=== PATIENT | female | born 1975 | race Caucasian/White ===

== ENCOUNTER → 2017-05-06 | Outpatient (CLI) | payer OTHER ==
[~2017-05-06] MED LIST: ATOM40 PO
[2017-05-06 14:15] LABS: AUTOMATED NEUTROPHIL # 6.5 TH/MM3 (1.8-7.7); BASOPHIL # 0.1 TH/MM3 (0-0.2); BASOPHIL % 0.8 % (0.0-2.0); EOSINOPHIL # 0.4 TH/MM3 (0-0.4); EOSINOPHIL % 4.2 % (0.0-4.0); HEMATOCRIT 40.1 % (35.0-46.0); HEMO FLAGS DIFF FINAL; LYMPH % 23.7 % (9.0-44.0); LYMPHOCYTE # 2.3 TH/MM3 (1.0-4.8); MEAN CELL VOLUME 85.2 FL (80.0-100.0); MEAN CORPUSCULAR HEMOGLOBIN 29.7 PG (27.0-34.0); MEAN CORPUSCULAR HGB CONC 34.9 % (32.0-36.0); MONO % 5.6 % (0.0-8.0); NEUT % 65.7 % (16.0-70.0); PLATELET COUNT 285 TH/MM3 (150-450); RED BLOOD COUNT 4.71 MIL/MM3 (4.00-5.30); RED CELL DISTRIBUTION WIDTH 13.2 % (11.6-17.2); WHITE BLOOD COUNT 9.9 TH/MM3 (4.0-11.0)
[2017-05-06 14:21] LABS: BLOOD, URINE NEG (NEG); GLUCOSE,URINE NEG (NEG); KETONE, URINE NEG (NEG); MUCUS URINE FEW /lpf (OCC); NITRITE,URINE NEG (NEG); PH, URINE 6.5 (5.0-8.5); SQUAMOUS EPITHELIAL CELL URINE 1 /hpf (0-5); URINE COLOR LIGHT-YELLOW (YELLW/STRAW)
[2017-05-06 14:22] LABS: COMMENT (UR) CULT NOT INDICATED; CULTURE IF INDICATED CULT NOT INDICATED
--- NOTE | 2017-05-08 12:20 | EKG ---
Date Performed: 05/06/2017 Time Performed: 13:56:40 PTAGE: 42 years EKG: Sinus rhythm Low QRS voltages in precordial leads Borderline ECG NO PREVIOUS TRACING DOCTOR: Suzy Kc Interpretating Date/Time 05/08/2017 12:19:13
== END ==
LOC: CPRE 13:28
PROVIDERS: ATTEND Obstetrics & Gynecology
DX: Z01.810 Encounter for preprocedural cardiovascular examination (principal); Z01.812 Encounter for preprocedural laboratory examination; N92.0 Excessive and frequent menstruation with regular cycle; R94.31 Abnormal electrocardiogram [ECG] [EKG]
CPT/HCPCS: 36415; 81001; 84703; 85025; 93005

== ENCOUNTER → 2017-05-10 | Day surgery (SDC) | payer OTHER ==
--- NOTE | 2017-05-06 13:06 | MH ---
cc: JOAQUIN BROWN DATE OF ADMISSION: 05/10/2017 Date of is 1975 ADMISSION DIAGNOSIS Menorrhagia. HISTORY OF PRESENT ILLNESS Patient is a 42-year-old white female, para 2-0-0-2, who returned for evaluation this year reporting increasing menstrual flow, often bleeding through pads and tampons with very minimal dysmenorrhea. She is now admitted for ablation. Her Pap smear on 03/16/2017 was normal. Endometrial biopsy from 04/05/2017 was benign. Her pelvic ultrasound from 03/25/2017 showed uterus measured 8.1 cm with normal anatomy. PAST MEDICAL HISTORY PREVIOUS SURGERY Third molars in childhood. OBSTETRICAL HISTORY Two vaginal deliveries. SOCIAL HISTORY She is . She works in [employer]. Alcohol, tobacco and drugs are none. FAMILY HISTORY Noncontributory. PHYSICAL EXAMINATION GENERAL: Reveals a well-nourished, well-developed white female. VITAL SIGNS: Stable. HEENT: Exam is normal. CHEST: Chest is clear. HEART: Regular rate. BREASTS: The breasts are symmetrical. ABDOMEN: Benign. PELVIC: Normal external genitalia and BUS. Vagina is normal. Cervix is normal. Uterus is normal size, shape anterior. No adnexal masses. ASSESSMENT As above. PLAN She is now admitted for NovaSure ablation, hysteroscopy. While in the office I explained the procedures, the risks and benefits and complications including infection, injury, bleeding and possibility of recurrent disease or other pathology that could require additional surgery and she understands and would like to proceed. MD PANDA Sosa/TALIA /12:42 PM /12:51 PM
[~2017-05-10] VITALS: Ht 160 cm; Wt 92.8 kg
[~2017-05-10] MED LIST changes: +ACETAMINOPHEN 1000 MG/100 ML 100 ML IV ONE; +APREPITANT 40 MG CAP ONE; +CHLORHEXIDINE GLUCONATE 2 % 1 PACK (2 CLOTHS) TOPICAL PRN; +DEXAMETHASONE SOD PHOS 4 MG/ML VIAL IV ONE; +DO NOT ADM ANY ANTICOAGULANT DRUGS PRN; +KETOROLAC TROMETHAMINE 30 MG/ML (IVP) VIAL IV PUSH ONE; +LACTATED RINGER'S 1000 ML IV PRN; +LIDOCAINE HCL 1% PF 5 ML SYRINGE OTHER ONE; +METOPROLOL TARTRATE 25 MG TAB PO PRN; +MIDAZOLAM HCL 2 MG/2 ML VIAL ONE; +ONDANSETRON HCL 4 MG/2 ML VIAL IV PUSH ONE; +PHENYLEPH/NS 1000 MCG/10 ML SYR IV ONE; +POVIDONE IODINE 5% (ANTISEPSIS KIT) 4 APPLICATIONS EACH NARE PRN; +PROPOFOL 200 MG/20 ML AMP IV ONE; +ceFAZolin 1,000 MG/NS 100 ML IV SCH; +oxyCODONE/ACETAMINOPHEN 5 MG/325 MG TAB PO PRN
--- NOTE | 2017-05-10 08:28 | MP ---
cc: JOAQUIN BROWN DATE OF SURGERY 05/10/2017 PREOPERATIVE DIAGNOSIS Menorrhagia. POSTOPERATIVE DIAGNOSIS Menorrhagia. PROCEDURE NovaSure ablation, hysteroscopy. ANESTHESIA General LMA. ESTIMATED BLOOD LOSS Less than 5 cc. FLUIDS 300 cc crystalloid. OBJECTIVE FINDINGS Following the induction of adequate general LMA anesthesia, the patient was prepped and draped supine on the operating table in the dorsal lithotomy position in sterile fashion with the bladder being drained via in and out catheterization. Examination under anesthesia revealed a normal sized and shaped uterus, no adnexal masses. A heavy weighted speculum was placed in the posterior fornix of the vagina, the anterior lip of the cervix grasped with single-tooth tenaculum. The cervix and uterus sounded to 2.5 cm to the internal os and 9 to the fundus. The cervix was dilated with a #20 Hanks dilator, the NovaSure wand deployed for a cavity length of 6.5 cm, cavity width of 3.8. The device was enabled. When complete the wand was removed intact. The hysteroscope was passed at the completion of the procedure. The tenaculum site was sutured with 2-0 chromic. All instruments were removed. All counts were correct. The patient's legs were taken down from the stirrups. She was awakened and taken to the recovery room in good condition. MD PANDA Sosa/URBANO /8:12 AM /8:15 AM DARREN
[2017-05-10 09:40] VITALS: BP 136/78; PULSE 61; RESP 18; O2SAT 97
== END | disposition home or self-care (01) ==
LOC: HSDC 05:37
PROVIDERS: ATTEND Obstetrics & Gynecology
DX: N92.0 Excessive and frequent menstruation with regular cycle (principal); N94.6 Dysmenorrhea, unspecified
CPT/HCPCS: 00952; 58563; J0131; J0690; J1100; J1885; J2250; J2370; J2405; J3010; J7120; J8501